=== PATIENT | female | born 1955 | race Caucasian/White ===

== ENCOUNTER 2024-08-22 13:07 | Emergency (ER) | payer MEDICARE, SELFPAY ==
[2024-08-22 13:14] VITALS: BP 106/71; PULSE 62; TEMP 36.9; O2SAT 97; BMI 18.8
--- NOTE | 2024-08-22 14:11 | CT_ITS ---
The [address] [address] Patient Name: PELON HERNANDEZ MRN: [id number] date: 1955 Sex: F Assigned Patient Location: ER Current Patient Location: [facility] Accession/Order Number: [id number] Exam Date: 08/22/2024 14:17 Report Date: 08/22/2024 15:51 At the request of: LEFTY DAVISON Procedure: CT head/brain wo con EXAM: CT head/brain wo con HISTORY: trauma COMPARISON: None. TECHNIQUE: Axial CT scans through the head were obtained without IV contrast administration. Dose reduction techniques were achieved by using: automated exposure control and/or adjustment of mA and /or kV according to patient size and/or use of iterative reconstruction technique. FINDINGS: There is no acute intracranial hemorrhage or abnormal extra-axial fluid collection. No mass effect or midline shift is seen. There is no evidence of large acute territorial infarction. There is no hydrocephalus. To the limit of CT, the posterior fossa appears unremarkable. The calvaria and extra cranial soft tissues are unremarkable. The visualized orbits show no abnormality. The visualized paranasal sinuses show no air-fluid level. Mastoid air cells are clear. CT/CT head/brain wo con IMPRESSION: No acute intracranial process. Electronically authenticated by: ALICIA ESCALERA Date: 08/22/2024 15:51
[2024-08-22] MEDS: METOCLOPRAMIDE HCL 10 MG/10 ML SOLUTION REGLAN PO (14:29)
[2024-08-22] MEDS: ACETAMINOPHEN 500 MG TABLET PO (14:29)
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
[2024-08-22] MEDS: ADACEL DIPH,PERTUSS(ACELL),TET VAC/PF 0.5 ML ADULT SYRINGE IM (16:11)
== END 2024-08-22 16:24 | disposition home or self-care (01) ==
PROVIDERS: Emergency Provider Emergency Medicine; PCP Internal Medicine
DX: S09.8XXA Other specified injuries of head, initial encounter (principal); F07.81 Postconcussional syndrome; W55.32XA Struck by other hoof stock, initial encounter; S41.111A Laceration without foreign body of right upper arm, initial encounter; S41.011A Laceration without foreign body of right shoulder, initial encounter; Z23 Encounter for immunization
CPT/HCPCS: 70450; 90471; 90715; 99284